=== PATIENT | male | born 1970 | race African-American/Black ===

== ENCOUNTER 2017-07-22 11:23 | Emergency (ER) | payer OTHER ==
[~2017-07-22] VITALS: Ht 182.8 cm; Wt 159.7 kg
--- NOTE | ~2017-07-22 | EKG ---
[place], [place] ELECTROCARDIOGRAM REPORT NAME: MARKUS WHITLEY UNIT #: [id number] ROOM: DOCTOR: NORMA GOODRICH,WEI BIRTHDATE: [birth year] DOS: 07/22/2017 TIME: 11:51 a.m. IMPRESSION: 1. Sinus rhythm. 2. Left bundle-branch block. WEI GREEN MD CM:EKGRPT:ELECTROCARDIOGRAM REPORT [id number] WEI GREEN MD
[~2017-07-22 11:23] MED LIST: AMARYL2 MG PO; ASPIRIN ADULT L81 M1 PO; CLONIDINE HCL0.1 MG PO; CLONIDINE0.2 MG PO; COREG6.25 MG PO; FUROSEMIDE10 MG/ML IV; HYDROCHLOROTHIA25 MG PO; INDOCIN50 MG PO; KLOR-CON M1010 ME1 PO; LASIX40 MG PO; LIPITOR20 MG PO; LISINOPRIL5 MG PO; MEDROL DOSEPAK4 MG PO; NORVASC10 MG PO; PERCOCET 325 MG1 TA2 PO; PROCARDIA XL60 MG PO; TOPROL XL25 MG PO; VICODIN ES 7501 TAB PO
[2017-07-22 11:39] VITALS: BP 128/72
[2017-07-22 12:08] LABS: BASO % 0.4 % (0.0-1.0); EOS # 0.1 10*3/uL (0.0-0.4); EOS % 1.7 % (1.0-4.0); HEMATOCRIT 42.9 % (42.0-52.0); HEMOGLOBIN 14.3 g/dl (14.0-18.0); LYMPH # 2.3 10*3/uL (1.3-4.4); LYMPH % 43.6 % (27.0-41.0); MEAN CELL VOLUME 91.7 fl (80.0-94.0); MEAN CORPUSCULAR HGB 30.6 pg (27.0-31.0); MEAN CORPUSCULAR HGB CONC 33.3 g/dl (33.0-37.0); MEAN PLATELET VOLUME 9.5 fl (9.6-12.3); MONO # 0.4 10*3/uL (0.1-1.0); MONO % 7.1 % (3.0-9.0); NEUT # 2.5 10*3/uL (2.3-7.9); NEUT % 47.2 % (47.0-73.0); PLATELET COUNT AUTOMATED 254 10*3/uL (130-400); RED BLOOD COUNT 4.68 10*6/uL (4.50-5.90); RED CELL DISTRI WIDTH 12.2 % (0-14.5); WHITE BLOOD COUNT 5.4 10*3/uL (4.8-10.8)
[2017-07-22 12:17] LABS: ACT PARTIAL THROMBO TIME 24.6 SECONDS (20.8-31.5); INTERNATIONAL NORM RATIO 0.9 (2.0-3.5)
[2017-07-22 12:25] LABS: ALBUMIN 3.8 gm/dl (3.1-4.5); ALKALINE PHOSPHATASE 61 U/L (45-117); BUN 30 mg/dl (7-24); CHLORIDE 106 mmol/L (98-107); CREATININE 1.68 mg/dL (0.70-1.30); POTASSIUM 4.2 mmol/L (3.5-5.1); SGOT/AST 27 IU/L (3-35); SGPT/ALT 40 U/L (12-78); SODIUM 139 mmol/L (136-145); TOTAL PROTEIN 8.3 gm/dL (6.4-8.2)
[2017-07-22 12:27] LABS: TROPONIN I < 0.015 ng/ml (<0.045)
== END 2017-07-22 14:58 | disposition home or self-care (01) ==
LOC: ED 11:23
PROVIDERS: Student in an Organized Health Care Education/Training Program
DX: T82.9XXA Unspecified complication of cardiac and vascular prosthetic device, implant and graft, initial encounter (principal); E66.01 Morbid (severe) obesity due to excess calories; I11.0 Hypertensive heart disease with heart failure; I50.30 Unspecified diastolic (congestive) heart failure; Z90.49 Acquired absence of other specified parts of digestive tract

== ENCOUNTER 2018-04-12 02:37 | Emergency (ER) | payer OTHER ==
[~2018-04-12] VITALS: Ht 182.8 cm; Wt 152.0 kg
[2018-04-12 03:30] LABS: BASO % 0.3 % (0.0-1.0); EOS # 0.1 10*3/uL (0.0-0.4); HEMATOCRIT 41.2 % (42.0-52.0); HEMOGLOBIN 13.3 g/dl (14.0-18.0); LYMPH # 2.5 10*3/uL (1.3-4.4); LYMPH % 26.7 % (27.0-41.0); MEAN CELL VOLUME 94.5 fl (80.0-94.0); MEAN CORPUSCULAR HGB 30.5 pg (27.0-31.0); MEAN CORPUSCULAR HGB CONC 32.3 g/dl (33.0-37.0); MEAN PLATELET VOLUME 10.3 fl (9.6-12.3); MONO # 0.7 10*3/uL (0.1-1.0); MONO % 7.5 % (3.0-9.0); NEUT # 6.1 10*3/uL (2.3-7.9); NEUT % 64.3 % (47.0-73.0); PLATELET COUNT AUTOMATED 244 10*3/uL (130-400); RED BLOOD COUNT 4.36 10*6/uL (4.50-5.90); RED CELL DISTRI WIDTH 13.2 % (0-14.5); WHITE BLOOD COUNT 9.5 10*3/uL (4.8-10.8)
[2018-04-12 03:47] LABS: ALBUMIN 3.6 gm/dl (3.1-4.5); CREATININE 2.34 mg/dL (0.70-1.30); POTASSIUM 3.9 mmol/L (3.5-5.1); TOTAL PROTEIN 7.7 gm/dL (6.4-8.2)
[2018-04-12] MEDS ORDERED: OMNICEF300 MG PO (05:32)
[2018-04-12] MEDS ORDERED: FLAGYL500 MG PO (05:32)
[2018-04-12 07:07] VITALS: BP 115/56
== END 2018-04-12 07:45 | disposition home or self-care (01) ==
LOC: ED 02:37
PROVIDERS: Emergency Medicine Emergency Medical Services
DX: K57.92 Diverticulitis of intestine, part unspecified, without perforation or abscess without bleeding (principal); I11.0 Hypertensive heart disease with heart failure; I50.9 Heart failure, unspecified; M10.9 Gout, unspecified; Z90.49 Acquired absence of other specified parts of digestive tract; Z79.82 Long term (current) use of aspirin

== ENCOUNTER 2019-06-20 14:34 | Emergency (ER) | payer OTHER ==
[~2019-06-20] VITALS: Ht 182.8 cm; Wt 163.3 kg
[2019-06-20 14:34] VITALS: BP 152/100
[~2019-06-20 14:34] MED LIST changes: +FLAGYL500 MG PO; +OMNICEF300 MG PO
[2019-06-20] MEDS ORDERED: IBU800 MG PO (16:10)
== END 2019-06-20 16:34 | disposition home or self-care (01) ==
LOC: ED 14:34
DX: S39.012A Strain of muscle, fascia and tendon of lower back, initial encounter (principal); S90.02XA Contusion of left ankle, initial encounter; S80.02XA Contusion of left knee, initial encounter; I11.0 Hypertensive heart disease with heart failure; I50.9 Heart failure, unspecified; Z79.2 Long term (current) use of antibiotics; Z79.82 Long term (current) use of aspirin; Z79.899 Other long term (current) drug therapy; Z90.49 Acquired absence of other specified parts of digestive tract; W01.0XXA Fall on same level from slipping, tripping and stumbling without subsequent striking against object, initial encounter; Y93.01 Activity, walking, marching and hiking; Y92.481 Parking lot as the place of occurrence of the external cause; Y99.8 Other external cause status

== ENCOUNTER → 2019-12-03 | Outpatient (CLI) | payer OTHER ==
[~2019-12-03] MED LIST changes: +IBU800 MG PO
[2019-12-03 13:28] LABS: BASO % 0.6 % (0.0-1.0); EOS # 0.1 10*3/uL (0.0-0.4); EOS % 1.2 % (1.0-4.0); HEMATOCRIT 50.4 % (42.0-52.0); HEMOGLOBIN 16.1 g/dl (14.0-18.0); LYMPH # 2.5 10*3/uL (1.3-4.4); LYMPH % 49.5 % (27.0-41.0); MEAN CELL VOLUME 94.6 fl (80.0-94.0); MEAN CORPUSCULAR HGB 30.2 pg (27.0-31.0); MEAN CORPUSCULAR HGB CONC 31.9 g/dl (33.0-37.0); MEAN PLATELET VOLUME 10.6 fl (9.6-12.3); MONO # 0.3 10*3/uL (0.1-1.0); MONO % 6.6 % (3.0-9.0); NEUT # 2.2 10*3/uL (2.3-7.9); NEUT % 41.9 % (47.0-73.0); PLATELET COUNT AUTOMATED 218 10*3/uL (130-400); RED BLOOD COUNT 5.33 10*6/uL (4.50-5.90); RED CELL DISTRI WIDTH 12.3 % (0-14.5); WHITE BLOOD COUNT 5.1 10*3/uL (4.8-10.8)
[2019-12-03 13:57] LABS: ALBUMIN 3.6 gm/dl (3.1-4.5); CREATININE 1.58 mg/dL (0.70-1.30); FREE T4 0.75 ng/dl (0.76-1.46); POTASSIUM 4.5 mmol/L (3.5-5.1); TOTAL PROTEIN 7.6 gm/dL (6.4-8.2)
[2019-12-03 14:03] LABS: THYROID STIM HORMONE (HS) 2.49 uIU/ml (0.358-4.75)
== END | disposition home or self-care (01) ==
LOC: LAB 12:25
PROVIDERS: Internal Medicine
DX: I51.7 Cardiomegaly (principal); R06.02 Shortness of breath

== ENCOUNTER 2020-02-01 05:09 | Inpatient (IN) | payer OTHER ==
[~2020-02-01] VITALS: Ht 182.8 cm; Wt 160.8 kg
[2020-02-01 05:14] VITALS: BP 119/72
--- NOTE | 2020-02-01 05:32 | NUR ---
EKG COMPLETED AND HANDED TO DR. BUI.
[2020-02-01 06:01] LABS: ALBUMIN 3.4 gm/dl (3.1-4.5); CREATININE 1.74 mg/dL (0.70-1.30); POTASSIUM 4.4 mmol/L (3.5-5.1); TOTAL PROTEIN 7.3 gm/dL (6.4-8.2); TROPONIN I 0.032 ng/ml (<0.045)
[2020-02-01 06:07] LABS: BASO % 0.5 % (0.0-1.0); EOS % 0.5 % (1.0-4.0); HEMATOCRIT 47.6 % (42.0-52.0); LYMPH # 2.5 10*3/uL (1.3-4.4); LYMPH % 31.8 % (27.0-41.0); MEAN CELL VOLUME 93.2 fl (80.0-94.0); MEAN CORPUSCULAR HGB 30.5 pg (27.0-31.0); MEAN CORPUSCULAR HGB CONC 32.8 g/dl (33.0-37.0); MEAN PLATELET VOLUME 10.4 fl (9.6-12.3); MONO # 0.5 10*3/uL (0.1-1.0); MONO % 6.8 % (3.0-9.0); NEUT # 4.7 10*3/uL (2.3-7.9); NEUT % 60.1 % (47.0-73.0); PLATELET COUNT AUTOMATED 204 10*3/uL (130-400); RED BLOOD COUNT 5.11 10*6/uL (4.50-5.90); RED CELL DISTRI WIDTH 12.9 % (0-14.5); WHITE BLOOD COUNT 7.8 10*3/uL (4.8-10.8)
[2020-02-01 06:21] LABS: ACT PARTIAL THROMBO TIME 26.1 SECONDS (20.0-32.1)
[2020-02-01 07:23] VITALS: BP 124/91
[2020-02-01] MEDS ORDERED: ALDACTONE25 M1 PO (08:39)
[2020-02-01 08:44] VITALS: BP 124/94
--- NOTE | 2020-02-01 08:51 | NUR ---
[facility] , under the services of MG Waller MD with a diagnosis of CHF. Chief complaint is SOB. Patient arrived via bed from ER. Monitor applied. Initial assessment completed. Vital signs taken and recorded. MG WALLER MD notified of admission to the unit. Orders received. See assessment for past medical history, medications and allergies. Patient and/or family oriented to unit. [facility] visitation policy reviewed. Clothing/patient valuable form completed. JOSE MORRIS
--- NOTE | 2020-02-01 10:41 | NUR ---
DR. RANGEL NOTIFIED OF CONSULT. NEW ORDERS RECIEVED.
--- NOTE | 2020-02-01 10:44 | NUR ---
DR. MARRUFO'S ANSWERING SERVICE NOTIFIED OF CONSULT.
--- NOTE | 2020-02-01 12:00 | NUR ---
PT RESTING IN BED. DENIES C/O AT PRESENT TIME. CALL LIGHT WITHIN REACH, WILL CONTINUE TO MONITOR.
[2020-02-01 13:50] LABS: BILIRUBIN NEGATIVE (NEGATIVE); BLOOD NEGATIVE (NEGATIVE); CLARITY CLEAR (CLEAR); COLOR STRAW (YELLOW); GLUCOSE NEGATIVE (NEGATIVE); KETONE NEGATIVE (NEGATIVE); LEUKO ESTERASE NEGATIVE (NEGATIVE); NITRITE NEGATIVE (NEGATIVE); PH 7.5 (5.0-9.0); UROBILINOGEN < 1.0 E.U./dl (0.2-1.0)
[2020-02-01 13:51] LABS: BACTERIA TRACE; EPITHELIAL CELLS 0-2; RBC 0-2 rbc/hpf (0-2); WBC 0-2 wbc/hpf (0-5)
[2020-02-01 16:00] VITALS: BP 102/50
--- NOTE | 2020-02-01 19:54 | NUR ---
PATIENT RESTING IN BED C/O HEADACHE. DENIES CHEST PAIN OR SHORTNESS OF BREATH. BED IN LOWEST POSITION, CALL LIGHT IN REACH
--- NOTE | 2020-02-01 19:57 | NUR ---
DR WOLFE AWARE OF PATIENT C/O HEADACHE. ORDER FOR 650 MG TYLENOL ONCE
[2020-02-01 20:00] VITALS: BP 102/53
--- NOTE | 2020-02-01 20:34 | NUR ---
MEDICATED WITH PRN TYLENOL FOR C/O HEADACHE RATED 6/10 ON A 0/10PAIN SCALE. WILL [id number]
--- NOTE | 2020-02-01 21:34 | NUR ---
MEDICATION EFFECTIVE PER PATIENT
[2020-02-02] VITALS (7 sets, daily range): BP systolic 103–162; BP diastolic 75–93
--- NOTE | 2020-02-02 02:39 | NUR ---
PATIENT RESTING IN BED WITH NO S/S OF DISTRESS. BED IN LOWEST POSITION, CALL LIGHT IN REACH
--- NOTE | 2020-02-02 03:40 | NUR ---
24 HR chart check completed.
--- NOTE | 2020-02-02 04:14 | NUR ---
PATIENT CALLED OUT C/O SHORTNESS OF BREATH WHEN HE WOKE UP FROM SLEEPING. OXYGEN 98% ON ROOM AIR. 2L NC APPLIED FOR COMFORT. PATIENT STATES HE SOMETIMES WAKES UP GASPING FOR AIR. STATES HE DID USE A CPAP IN THE PAST. CONTINUOUS PULSE OX APPLIED PER PATIENT REQUEST.
--- NOTE | 2020-02-02 12:00 | NUR ---
SPOKE WITH . PT REQUESTING TO SHOWER. ORDER OBTAINED TO REMOVE LAYTONIOR FOR SHOWER.
[2020-02-02 13:18] LABS: ALBUMIN 3.7 gm/dl (3.1-4.5); CREATININE 1.76 mg/dL (0.70-1.30); TOTAL PROTEIN 8.2 gm/dL (6.4-8.2)
--- NOTE | 2020-02-02 16:00 | NUR ---
PT RESTING IN BED. DENIES ANY NEEDS. ROOM AIR, LUNGS DIMINISHED. DENIES ANY PAIN AT THIS TIME. CALL LIGHT WITHIN REACH.
--- NOTE | 2020-02-02 20:18 | NUR ---
COREG AND LISINOPRIL GIVEN EARLY PER PATIENT REQUEST. PATIENT STATES THAT HE WAS ALREADY ON COREG 25 MG BID AT HOME. AFTER CHECKING MED REC, MED REC WAS NOT ACCURATE.
[2020-02-03] VITALS: BP 105/75
[2020-02-03] MEDS ORDERED: CARVEDILOL25 MG PO (05:56)
--- NOTE | 2020-02-03 05:57 | NUR ---
25 MG OF COREG ADDED TO PATIENT'S MED REC PER JOEY STATING THAT THIS IS THE DOSE HE TAKES AT HOME. THIS DOSE WAS FILLED IN NOVEMBER
[2020-02-03 07:08] LABS: CREATININE 1.75 mg/dL (0.70-1.30); POTASSIUM 3.8 mmol/L (3.5-5.1)
[2020-02-03 08:00] VITALS: BP 102/84
[2020-02-03 12:00] VITALS: BP 118/82
[2020-02-03 16:00] VITALS: BP 127/89
[2020-02-03 20:00] VITALS: BP 104/72; BP 123/89
--- NOTE | 2020-02-03 21:20 | NUR ---
PT RESTING IN BED. TOLERATED ROUTINE MED WITH NO PROBLEM. C/O HEADACHE RATES PAIN 3 ON PAIN SCALE 0-10. CALLED DR. MONTAGUE FOR TYLENOL PER PT REQUEST. WAITING FOR ORDERS. CALL LIGHT IN REACH. SEE SHIFT ASSESSMENT.
--- NOTE | 2020-02-03 22:03 | NUR ---
MEDICATED WITH TYLENOL PO PER PRN ORDER, SEE EMAR. FOR C/O HEADACHE, RATES PAIN 3 ON PAIN SCALE 0-10. CALL LIGHT IN REACH.
--- NOTE | 2020-02-03 23:00 | NUR ---
TYLENOL EFFECTIVE FOR HEADACHE PAIN.
--- NOTE | 2020-02-03 23:20 | NUR ---
24 HR chart check completed.
[2020-02-04] VITALS: BP 126/97
[2020-02-04 00:05] VITALS: BP 128/86
[2020-02-04 07:49] LABS: CREATININE 1.96 mg/dL (0.70-1.30); POTASSIUM 4.4 mmol/L (3.5-5.1)
[2020-02-04 08:00] VITALS: BP 93/77
--- NOTE | 2020-02-04 08:00 | NUR ---
Belt Press Operator in to see patient. He is currently not in his room. Will follow up at a later time.
--- NOTE | 2020-02-04 08:30 | NUR ---
PT TO RADIOLOGY FOR KIDNEY US.
--- NOTE | 2020-02-04 10:56 | NUR ---
Spoke to Dr. Walton regarding whether patient needs to be continued on telemetry or if it could be removed. New orders received to remove tele.
[2020-02-04 12:00] VITALS: BP 115/67
[2020-02-04] MEDS ORDERED: LASIX40 MG PO (15:30)
[2020-02-04] MEDS ORDERED: CARVEDILOL25 MG PO (15:30)
--- NOTE | 2020-02-04 15:49 | NUR ---
Word Processing Specialist in to talk to patient. Patient states lives at home with his . There are 0 steps in the home. Physician: Dr. German Walton [facility] health services: none Patient's level of ADLs: INDEPENDENT Patient has working utilities: yes DME: none Follow-up physician's appointment after d/c: his appt is tomorrow Does patient want to access PORTAL?: no Discharge plan discussed with patient. He lives at home with his . He is independent in his ADLs and ambulation. Discussed home health care services and he denies any home needs at this time. He is awaiting his discharge papers. His will provide transportation on discharge. SHERWIN FELIZ
--- NOTE | 2020-02-04 15:53 | NUR ---
HEPLOCK AND THERAPEUTIC CASE MANAGER DISCONTINUED. DISCHARGE INSTRUCTIONS REVIEWED. PT AMBULATED OFF THE FLOOR TO PRIVATE CAR.
== END 2020-02-04 15:55 | disposition home or self-care (01) | DRG 194 ==
LOC: ED 05:09 → EDHOLD 06:20 → 4E 06:20
PROVIDERS: Emergency Medicine Emergency Medical Services; Internal Medicine Nephrology; ADMIT Internal Medicine
DX: I13.0 Hypertensive heart and chronic kidney disease with heart failure and stage 1 through stage 4 chronic kidney disease, or unspecified chronic kidney disease (principal); I50.43 Acute on chronic combined systolic (congestive) and diastolic (congestive) heart failure; N17.0 Acute kidney failure with tubular necrosis; I44.7 Left bundle-branch block, unspecified; M10.09 Idiopathic gout, multiple sites; N18.3 Chronic kidney disease, stage 3 (moderate); E11.22 Type 2 diabetes mellitus with diabetic chronic kidney disease; I25.10 Atherosclerotic heart disease of native coronary artery without angina pectoris; I43 Cardiomyopathy in diseases classified elsewhere; E66.01 Morbid (severe) obesity due to excess calories; E83.9 Disorder of mineral metabolism, unspecified; G47.33 Obstructive sleep apnea (adult) (pediatric); Z82.49 Family history of ischemic heart disease and other diseases of the circulatory system; Z95.0 Presence of cardiac pacemaker; Z79.899 Other long term (current) drug therapy; Z79.82 Long term (current) use of aspirin; Z68.42 Body mass index [BMI] 45.0-49.9, adult

== ENCOUNTER → 2020-02-11 | Outpatient (CLI) | payer OTHER ==
[~2020-02-11] MED LIST changes: +ALDACTONE25 M1 PO; +CARVEDILOL25 MG PO
[2020-02-11 12:33] LABS: CREATININE 1.52 mg/dL (0.70-1.30); POTASSIUM 4.4 mmol/L (3.5-5.1)
== END | disposition home or self-care (01) ==
LOC: LAB 11:28
PROVIDERS: Internal Medicine
DX: R06.02 Shortness of breath (principal)

== ENCOUNTER → 2020-03-06 | Outpatient (CLI) | payer OTHER ==
[2020-03-06 10:57] LABS: CREATININE 1.56 mg/dL (0.70-1.30); POTASSIUM 4.3 mmol/L (3.5-5.1)
== END | disposition home or self-care (01) ==
LOC: LAB 10:06
PROVIDERS: Internal Medicine
DX: I50.30 Unspecified diastolic (congestive) heart failure (principal)

== ENCOUNTER → 2020-04-14 | Outpatient (CLI) | payer OTHER ==
[2020-04-14 11:08] LABS: CREATININE 1.74 mg/dL (0.70-1.30); POTASSIUM 4.3 mmol/L (3.5-5.1)
== END | disposition home or self-care (01) ==
LOC: LAB 08:53
PROVIDERS: Internal Medicine
DX: R06.02 Shortness of breath (principal); E78.5 Hyperlipidemia, unspecified

== ENCOUNTER → 2020-09-28 | Outpatient (CLI) | payer OTHER ==
[2020-09-29 13:06] LABS: PROSTATE SPECIFIC AG FREE 0.41 ng/mL; PROSTATE SPECIFIC AG, SERUM 0.9 ng/mL (0.0-4.0)
[2020-10-01 11:07] LABS: TESTOSTERONE FREE, (DIRECT) 12.1 pg/mL (7.2-24.0)
== END | disposition home or self-care (01) ==
LOC: LAB 12:40
PROVIDERS: ATTEND Internal Medicine
DX: Z12.5 Encounter for screening for malignant neoplasm of prostate (principal); E29.1 Testicular hypofunction

== ENCOUNTER → 2021-01-20 | Outpatient (CLI) | payer OTHER ==
[2021-01-20 08:25] LABS: BASO % 0.4 % (0.0-1.0); EOS # 0.1 10*3/uL (0.0-0.4); EOS % 1.9 % (1.0-4.0); HEMATOCRIT 45.2 % (42.0-52.0); LYMPH # 2.3 10*3/uL (1.3-4.4); LYMPH % 43.6 % (27.0-41.0); MEAN CELL VOLUME 92.4 fl (80.0-94.0); MEAN CORPUSCULAR HGB 29.7 pg (27.0-31.0); MEAN CORPUSCULAR HGB CONC 32.1 g/dl (33.0-37.0); MEAN PLATELET VOLUME 10.2 fl (9.6-12.3); MONO # 0.4 10*3/uL (0.1-1.0); MONO % 7.9 % (3.0-9.0); NEUT # 2.4 10*3/uL (2.3-7.9); PLATELET COUNT AUTOMATED 183 10*3/uL (130-400); RED BLOOD COUNT 4.89 10*6/uL (4.50-5.90); RED CELL DISTRI WIDTH 13.4 % (0-14.5); WHITE BLOOD COUNT 5.2 10*3/uL (4.8-10.8)
[2021-01-20 08:53] LABS: FREE T4 0.71 ng/dl (0.76-1.46); THYROID STIM HORMONE (HS) 1.6 uIU/ml (0.358-4.75)
[2021-01-21 11:07] LABS: CREATININE,URINE 134.4 mg/dL (Not Estab.)
[2021-01-21 11:07] LABS: PROSTATE SPECIFIC AG FREE 0.31 ng/mL; PROSTATE SPECIFIC AG, SERUM 0.8 ng/mL (0.0-4.0)
== END | disposition home or self-care (01) ==
LOC: LAB 08:03
PROVIDERS: ATTEND Internal Medicine
DX: I10 Essential (primary) hypertension (principal); E29.1 Testicular hypofunction; E78.5 Hyperlipidemia, unspecified; E11.22 Type 2 diabetes mellitus with diabetic chronic kidney disease

== ENCOUNTER 2021-02-25 06:19 | Emergency (ER) | payer OTHER ==
[~2021-02-25] VITALS: Ht 182.8 cm; Wt 163.3 kg
[2021-02-25 06:27] VITALS: BP 118/61
[2021-02-25 07:16] LABS: BASO % 0.7 % (0.0-1.0); EOS # 0.1 10*3/uL (0.0-0.4); EOS % 1.6 % (1.0-4.0); HEMATOCRIT 45.5 % (42.0-52.0); LYMPH # 2.9 10*3/uL (1.3-4.4); LYMPH % 46.7 % (27.0-41.0); MEAN CELL VOLUME 94.6 fl (80.0-94.0); MEAN CORPUSCULAR HGB 30.8 pg (27.0-31.0); MEAN CORPUSCULAR HGB CONC 32.5 g/dl (33.0-37.0); MONO # 0.4 10*3/uL (0.1-1.0); MONO % 6.9 % (3.0-9.0); NEUT # 2.7 10*3/uL (2.3-7.9); NEUT % 44.1 % (47.0-73.0); PLATELET COUNT AUTOMATED 232 10*3/uL (130-400); RED BLOOD COUNT 4.81 10*6/uL (4.50-5.90); RED CELL DISTRI WIDTH 14.2 % (0-14.5); WHITE BLOOD COUNT 6.1 10*3/uL (4.8-10.8)
[2021-02-25 07:31] LABS: ALBUMIN 3.5 gm/dl (3.1-4.5); ALKALINE PHOSPHATASE 56 U/L (45-117); BUN 33 mg/dl (7-24); CHLORIDE 108 mmol/L (98-107); POTASSIUM 4.2 mmol/L (3.5-5.1); SGOT/AST 20 IU/L (3-35); SGPT/ALT 42 U/L (12-78); SODIUM 138 mmol/L (136-145); TOTAL PROTEIN 7.8 gm/dL (6.4-8.2); URIC ACID 5.7 mg/dL (3.5-7.2)
[2021-02-25] MEDS ORDERED: HYDROCODONE-AC1 EAC1 PO (10:09)
[2021-02-25] MEDS ORDERED: PREDNISONE50 MG PO (10:09)
== END 2021-02-25 10:12 | disposition home or self-care (01) ==
LOC: ED 06:19
PROVIDERS: Emergency Medicine
DX: M25.562 Pain in left knee (principal); I13.0 Hypertensive heart and chronic kidney disease with heart failure and stage 1 through stage 4 chronic kidney disease, or unspecified chronic kidney disease; E11.22 Type 2 diabetes mellitus with diabetic chronic kidney disease; I50.30 Unspecified diastolic (congestive) heart failure; N18.30 Chronic kidney disease, stage 3 unspecified; M10.9 Gout, unspecified; Z79.899 Other long term (current) drug therapy; Z90.49 Acquired absence of other specified parts of digestive tract; Z95.818 Presence of other cardiac implants and grafts

== ENCOUNTER → 2021-08-25 | Outpatient (CLI) | payer OTHER ==
[~2021-08-25] MED LIST changes: +HYDROCODONE-AC1 EAC1 PO; +PREDNISONE50 MG PO
[2021-08-25 11:32] LABS: BASO % 0.6 % (0.0-1.0); EOS # 0.1 10*3/uL (0.0-0.4); EOS % 1.2 % (1.0-4.0); HEMATOCRIT 49.2 % (42.0-52.0); LYMPH # 2.6 10*3/uL (1.3-4.4); LYMPH % 49.1 % (27.0-41.0); MEAN CELL VOLUME 94.1 fl (80.0-94.0); MEAN CORPUSCULAR HGB CONC 32.9 g/dl (33.0-37.0); MEAN PLATELET VOLUME 9.6 fl (9.6-12.3); MONO # 0.4 10*3/uL (0.1-1.0); MONO % 7.1 % (3.0-9.0); NEUT # 2.2 10*3/uL (2.3-7.9); NEUT % 41.8 % (47.0-73.0); PLATELET COUNT AUTOMATED 211 10*3/uL (130-400); RED BLOOD COUNT 5.23 10*6/uL (4.50-5.90); RED CELL DISTRI WIDTH 12.5 % (0-14.5); WHITE BLOOD COUNT 5.2 10*3/uL (4.8-10.8)
[2021-08-25 11:43] LABS: BILIRUBIN Negative (Negative); BLOOD Negative (Negative); CLARITY Clear (Clear); COLOR Yellow (Yellow); GLUCOSE Negative (Negative); KETONE Negative (Negative); LEUKO ESTERASE Trace (Negative); NITRITE Negative (Negative); UROBILINOGEN 0.2 E.U./dl (0.0-1.0)
[2021-08-25 11:49] LABS: ALBUMIN 3.4 gm/dl (3.1-4.5); CREATININE 1.62 mg/dL (0.70-1.30); POTASSIUM 4.3 mmol/L (3.5-5.1); TOTAL PROTEIN 7.5 gm/dL (6.4-8.2)
[2021-08-25 12:22] LABS: BACTERIA 1+
[2021-08-26 09:07] LABS: CREATININE,URINE 27.6 mg/dL (Not Estab.)
== END | disposition home or self-care (01) ==
LOC: LAB 11:06
PROVIDERS: ATTEND Internal Medicine Nephrology
DX: N18.32 Chronic kidney disease, stage 3b (principal); E55.9 Vitamin D deficiency, unspecified

== ENCOUNTER 2021-09-07 12:27 | Emergency (ER) | payer OTHER ==
[~2021-09-07 12:27] MED LIST changes: +ATORVASTATIN CA40 M1 PO; +JARDIANCE10 MG PO; +TERBINAFINE250 MG PO; +VALSARTAN320 MG PO
[2021-09-07 12:38] VITALS: BP 107/56
[2021-09-07 14:18] LABS: BASO % 0.3 % (0.0-1.0); EOS % 0.5 % (1.0-4.0); HEMATOCRIT 48.4 % (42.0-52.0); LYMPH # 2.1 10*3/uL (1.3-4.4); LYMPH % 33.4 % (27.0-41.0); MEAN CORPUSCULAR HGB 30.4 pg (27.0-31.0); MEAN CORPUSCULAR HGB CONC 31.6 g/dl (33.0-37.0); MEAN PLATELET VOLUME 9.8 fl (9.6-12.3); MONO # 0.8 10*3/uL (0.1-1.0); MONO % 12.2 % (3.0-9.0); NEUT # 3.3 10*3/uL (2.3-7.9); NEUT % 53.4 % (47.0-73.0); PLATELET COUNT AUTOMATED 185 10*3/uL (130-400); RED BLOOD COUNT 5.04 10*6/uL (4.50-5.90); RED CELL DISTRI WIDTH 13.2 % (0-14.5); WHITE BLOOD COUNT 6.2 10*3/uL (4.8-10.8)
[2021-09-07 14:34] LABS: ALBUMIN 3.2 gm/dl (3.1-4.5); CREATININE 1.77 mg/dL (0.70-1.30); TOTAL PROTEIN 7.3 gm/dL (6.4-8.2)
== END 2021-09-07 17:39 | disposition home or self-care (01) ==
LOC: ED 12:27
PROVIDERS: Physician Assistant
DX: U07.1 COVID-19 (principal); E11.9 Type 2 diabetes mellitus without complications; I10 Essential (primary) hypertension; Z79.899 Other long term (current) drug therapy

== ENCOUNTER → 2022-01-13 | Outpatient (CLI) | payer OTHER ==
[2022-01-13 10:02] LABS: BASO % 0.7 % (0.0-1.0); EOS # 0.1 10*3/uL (0.0-0.4); EOS % 2.4 % (1.0-4.0); HEMATOCRIT 55.1 % (42.0-52.0); LYMPH # 2.5 10*3/uL (1.3-4.4); LYMPH % 46.6 % (27.0-41.0); MEAN CELL VOLUME 90.8 fl (80.0-94.0); MEAN CORPUSCULAR HGB 29.7 pg (27.0-31.0); MEAN CORPUSCULAR HGB CONC 32.7 g/dl (33.0-37.0); MEAN PLATELET VOLUME 9.8 fl (9.6-12.3); MONO # 0.4 10*3/uL (0.1-1.0); MONO % 7.4 % (3.0-9.0); NEUT # 2.3 10*3/uL (2.3-7.9); NEUT % 42.7 % (47.0-73.0); PLATELET COUNT AUTOMATED 183 10*3/uL (130-400); RED BLOOD COUNT 6.07 10*6/uL (4.50-5.90); RED CELL DISTRI WIDTH 13.4 % (0-14.5); WHITE BLOOD COUNT 5.4 10*3/uL (4.8-10.8)
[2022-01-13 10:43] LABS: CREATININE 1.67 mg/dL (0.70-1.30); POTASSIUM 4.3 mmol/L (3.5-5.1); TOTAL PROTEIN 7.8 gm/dL (6.4-8.2)
[2022-01-13 10:48] LABS: FREE T4 0.74 ng/dl (0.76-1.46); THYROID STIM HORMONE (HS) 1.75 uIU/ml (0.358-4.75); VITAMIN D, 25-HYDROXY 32.7 ng/mL (30-100)
[2022-01-19 22:06] LABS: FREE PSA 0.274 ng/mL (.)
== END | disposition home or self-care (01) ==
LOC: LAB 09:47
PROVIDERS: ATTEND Internal Medicine
DX: E11.22 Type 2 diabetes mellitus with diabetic chronic kidney disease (principal); I10 Essential (primary) hypertension; Z12.5 Encounter for screening for malignant neoplasm of prostate